=== PATIENT | female | born 1955 | race Caucasian/White ===

== ENCOUNTER 2018-07-25 12:19 | Emergency (ER) | payer OTHER, SELFPAY ==
[2018-07-25 12:30] VITALS: BP 115/54; PULSE 82; RESP 14; TEMP 36.2; O2SAT 98; BMI 43.0
--- NOTE | 2018-07-25 13:00 | ED_ITS ---
HPI - Recheck/Abnormal Lab/Rx <Chloe Maddox PA-C - Last Filed: 07/25/18 18:30> General Chief Complaint: Recheck/Abnormal Lab/Rx Stated Complaint: abnormal lab results for Glucose, sent by [facility] Time Seen by Provider: 07/25/18 12:59 Source: patient Mode of arrival: ambulatory Limitations: no limitations History of Present Illness HPI narrative: this 62-year-old female was sent here today after a phone call from PCP regarding lab work that was done yesterday. She was told that her glucose was more than 400 and needed to come to the ED. She states that she had her labs done shortly after eating a cheeseburger and fries yesterday and is diabetic. She states that she is feeling in her usual state of health today and was in the middle of getting a pedicure when she got called. She states that she has not been feeling that well in the last year. She states that she does not have any increased urinary frequency ( has chronically) and drinks a lot of fluids. She has not been more thirsty. She has had some increased vaginal itching for the last month and was put on nystatin for her PCP. She has not had any recent URI symptoms, cough, diarrhea, or fever. She states that she has had some chest discomfort the occasionally and has talked with her PCP about this, she denies any chest pain or dyspnea now. She states the only other new symptoms she can think of is her right ankle has been a little bit sore just with walking on it for the last couple of days. She denies any calf pain or swelling. She states that this morning she had a slice of pizza, then had fast food but has not eaten for about 3 hr now. She states that she is on 50 units of Lantus once daily but not on any other medications for her diabetes. Her fasting blood sugars are generally in the upper 270s range. She admits that she has not been checking any postprandial blood sugars Related Data Home Medications Medication Instructions Recorded Confirmed aspirin 81 mg PO DAILY 07/25/18 07/25/18 insulin glargine [Lantus Solostar 50 units SUBCUT DAILY 07/25/18 07/25/18 U-100 Insulin] levothyroxine [Synthroid] 50 mcg PO DAILY 07/25/18 07/25/18 lisinopril 10 mg PO DAILY 07/25/18 07/25/18 loratadine 10 mg PO DAILY 07/25/18 07/25/18 nystatin 1 applic TOPICAL DIRECTED 07/25/18 07/25/18 Allergies Allergy/AdvReac Type Severity Reaction Status Date / Time No Known Drug Allergies Allergy Verified 07/25/18 12:36 Review of Systems <Chloe Maddox PA-C - Last Filed: 07/25/18 18:30> Review of Systems All systems reviewed & are unremarkable except as noted in HPI and below Exam <Chloe Maddox PA-C - Last Filed: 07/25/18 18:30> Narrative Exam Narrative: GENERAL APPEARANCE: Patient sitting comfortably, appears well NECK/THYROID: Neck supple LUNGS: Clear to auscultation bilaterally. HEART: Regular rate and rhythm without murmur, normal S1, S2, no S3 or S4. ABDOMEN: Soft, NT, ND EXTREMITIES: No cyanosis or edema. No calf tenderness NEUROLOGIC: Alert and oriented, normal speech, gait and coordination. MUSCULOSKELETAL: right ankle no effusion or tenderness, full range of motion nonweightbearing Initial Vital Signs Initial Vital Signs: Vital Signs Temperature 97.2 F L 07/25/18 12:30 Pulse Rate 82 07/25/18 12:30 Respiratory Rate 14 07/25/18 12:30 Blood Pressure 115/54 L 07/25/18 12:30 Pulse Oximetry 98 07/25/18 12:30 <Flores Musa DO - Last Filed: 07/28/18 08:34> Initial Vital Signs Initial Vital Signs: Vital Signs Temperature 97.2 F L 07/25/18 12:30 Pulse Rate 82 07/25/18 12:30 Respiratory Rate 14 07/25/18 12:30 Blood Pressure 115/54 L 07/25/18 12:30 Pulse Oximetry 98 07/25/18 12:30 Course <KATIE Zhou Last Filed: 07/25/18 18:30> Additional Information: patient was going about her usual activities, did not appear acutely ill. From what she describes her home blood sugars have clearly been similar to what they are today. She does not have any urine ketones, blood sugar is 322 nonfasting. Advised follow-up with PCP in the next day or 2 so that she can get some mealtime insulin or other new medication added to help with postprandial blood sugars, and advised on diet modification. Orders Ordered: ED Orders 07/25/18 13:23 Complete Blood Count AUTO DIFF Stat Comprehensive Metabolic Panel Stat Vital Signs - 8 hr 07/25/18 12:30 07/25/18 14:33 Temperature 97.2 F L Pulse Rate 82 79 Respiratory Rate 14 18 Blood Pressure 115/54 L Blood Pressure [Right Arm] 134/78 Pulse Oximetry 98 98 <Flores Musa DO - Last Filed: 07/28/18 08:34> Orders Ordered: ED Orders 07/25/18 13:23 Complete Blood Count AUTO DIFF Stat Comprehensive Metabolic Panel Stat Vital Signs - 8 hr 07/25/18 12:30 07/25/18 14:33 Temperature 97.2 F L Pulse Rate 82 79 Respiratory Rate 14 18 Blood Pressure 115/54 L Blood Pressure [Right Arm] 134/78 Pulse Oximetry 98 98 MDM - Recheck/Abnormal Lab/Rx <Chloe Maddox PA-C - Last Filed: 07/25/18 18:30> Medical Records Attestation: I reviewed the patient's medical records. Labs from 07/24 glucose 400, no other abnormality on Chem panel, osmolality 284 normal range 265-285 Lab Data Attestation: I reviewed the patient's lab results. Result diagrams: 07/25/18 13:23 07/25/18 13:23 Lab Results 07/25/18 07/25/18 Range/Units 13:23 13:23 WBC 8.8 (4.5-11.0) X10^3/uL RBC 5.09 (4.0-5.2) X10^6/uL Hgb 15.1 (12.0-16.0) g/dL Hct 44.0 (36-46) % MCV 86.4 (80-100) fL MCH 29.7 (26-34) PG MCHC 34.4 (30-36) % RDW 13.4 (11.6-14.8) % Plt Count 291 (150-400) X10^3/uL Neut % (Auto) 56.8 (50-75) % Lymph % (Auto) 35.0 (25-40) % [place] % (Auto) 5.2 (3-14) % Eos % (Auto) 1.6 L (2-4) % Baso % (Auto) 1.4 (0-2) % Neut # (Auto) 5000 (1481-6698) /uL Sodium 137 (137-145) mmol/L Potassium 4.2 (3.4-5.1) mmol/L Chloride 98 (98-107) mmol/L Carbon Dioxide 26 (22-32) mmol/L BUN 16 (7-17) mg/dL Creatinine 0.60 (0.52-1.04) mg/dL Estimated GFR > 60.0 (>60) mL/min BUN/Creatinine Ratio 26.7 H (6-22) Glucose 322 H (80-110) mg/dL Calcium 9.6 (8.4-10.2) mg/dL Total Bilirubin 0.5 (0.2-1.3) mg/dL AST 19 (14-36) IU/L ALT 25 (9-52) IU/L Alkaline Phosphatase 79 (38-126) U/L Total Protein 7.8 (6.3-8.2) g/dL Albumin 4.3 (3.5-5.0) g/dL Globulin 3.5 (1.7-4.1) g/dL Albumin/Globulin Ratio 1.2 (1.0-2.8) Ketones Cancelled Point of Care Testing Glucose POC 275 Urine Dip Bedside Urine Glucose 1000 mg/dl Bedside Urine Bilirubin - Negative Bedside Urine Ketone - Negative Urine Specific [place] 1.015 Bedside Urine Occult Blood - Negative Bedside Urine pH 6.0 Bedside Urine Protein - Negative Bedside Urine Urobilinogen - Negative Bedside Urine Nitrite - Negative Bedside Urine Leukocytes - Negative Esterase <Flores Musa, DO - Last Filed: 07/28/18 08:34> Lab Data Lab Results 07/25/18 07/25/18 Range/Units 13:23 13:23 WBC 8.8 (4.5-11.0) X10^3/uL RBC 5.09 (4.0-5.2) X10^6/uL Hgb 15.1 (12.0-16.0) g/dL Hct 44.0 (36-46) % MCV 86.4 (80-100) fL MCH 29.7 (26-34) PG MCHC 34.4 (30-36) % RDW 13.4 (11.6-14.8) % Plt Count 291 (150-400) X10^3/uL Neut % (Auto) 56.8 (50-75) % Lymph % (Auto) 35.0 (25-40) % [place] % (Auto) 5.2 (3-14) % Eos % (Auto) 1.6 L (2-4) % Baso % (Auto) 1.4 (0-2) % Neut # (Auto) 5000 (3424-6426) /uL Sodium 137 (137-145) mmol/L Potassium 4.2 (3.4-5.1) mmol/L Chloride 98 (98-107) mmol/L Carbon Dioxide 26 (22-32) mmol/L BUN 16 (7-17) mg/dL Creatinine 0.60 (0.52-1.04) mg/dL Estimated GFR > 60.0 (>60) mL/min BUN/Creatinine Ratio 26.7 H (6-22) Glucose 322 H (80-110) mg/dL Calcium 9.6 (8.4-10.2) mg/dL Total Bilirubin 0.5 (0.2-1.3) mg/dL AST 19 (14-36) IU/L ALT 25 (9-52) IU/L Alkaline Phosphatase 79 (38-126) U/L Total Protein 7.8 (6.3-8.2) g/dL Albumin 4.3 (3.5-5.0) g/dL Globulin 3.5 (1.7-4.1) g/dL Albumin/Globulin Ratio 1.2 (1.0-2.8) Ketones Cancelled Point of Care Testing Glucose POC 275 Urine Dip Bedside Urine Glucose 1000 mg/dl Bedside Urine Bilirubin - Negative Bedside Urine Ketone - Negative Urine Specific [place] 1.015 Bedside Urine Occult Blood - Negative Bedside Urine pH 6.0 Bedside Urine Protein - Negative Bedside Urine Urobilinogen - Negative Bedside Urine Nitrite - Negative Bedside Urine Leukocytes - Negative Esterase Discharge Plan Departure Patient Disposition: Home Clinical Impression: Chronic hyperglycemia Discharge Date/Time: 07/25/18 14:43 Interventions: ED Discharge Assessment Last Done: 07/25/18 14:43 Instructions: Type 2 Diabetes, DI for Hyperglycemia -- Adult, What to Eat if You Have Diabetes Activity Restrictions/Additional Instructions: please call your clinic and arrange for follow-up in the next few days. In the interim, please check blood sugar 1 hr after eating your largest 2 meals of the day and take your blood sugars to the clinic to review. from what you have described to me about your home blood sugars and recent lab work, your blood sugars are consistently elevated and today's readings that we see look typical. please talk with your PCP about further treatment for your after meal blood sugars (you may need to add some mealtime insulin or another new medication as you have been talking about). Please work on more healthier meals , avoid fast food, sweets and sugary drinks. Please be sure to talk with your PCP about the chest discomfort that you have had periodically as it may be helpful to refer you for stress testing. We have not done further testing for this since you are not symptomatic now. As we talked about, you should get to the emergency room if you experience chest pain or shortness of breath Prescriptions: No Action aspirin 81 mg tablet,delayed release (DR/EC) 81 mg PO DAILY RF: 0 levothyroxine [Synthroid] 50 mcg tablet 50 mcg PO DAILY RF: 0 nystatin 100,000 unit/gram cream 1 applic Topical DIRECTED RF: 0 lisinopril 10 mg tablet 10 mg PO DAILY RF: 0 insulin glargine [Lantus Solostar U-100 Insulin] 100 unit/mL (3 mL) insulin pen 50 units subcut DAILY RF: 0 loratadine 10 mg tablet 10 mg PO DAILY RF: 0 Referrals: [facility] [Outside] <Flores Musa DO - Last Filed: 07/28/18 08:34> Cosign ED Attending Papiature Attestation: I was immediately available in the department for consultation. Documentation has been reviewed. I agree with assessment and plan.
[2018-07-25 13:31] LABS: Add Manual Diff / Slide Review NO; Basophils Percent Auto 1.4 % (0-2); Eosinophils Percent Auto 1.6 % (2-4); Hemoglobin 15.1 g/dL (12.0-16.0); Mean Corpuscular HGB Conc 34.4 % (30-36); Mean Corpuscular Hemoglobin 29.7 PG (26-34); Mean Corpuscular Volume 86.4 fL (80-100); Monocytes Percent Auto 5.2 % (3-14); Neutrophils Absolute Auto 5000 /uL (3000-5900); Neutrophils Percent Auto 56.8 % (50-75); Platelet Count 291 X10^3/uL (150-400); Red Blood Cell Count 5.09 X10^6/uL (4.0-5.2); Red Cell Distribution Width 13.4 % (11.6-14.8); White Blood Cell Count 8.8 X10^3/uL (4.5-11.0)
[2018-07-25 13:48] LABS: Alanine Aminotransferase 25 IU/L (9-52); Albumin 4.3 g/dL (3.5-5.0); Albumin Globulin Ratio 1.2 (1.0-2.8); Alkaline Phosphatase 79 U/L (38-126); Aspartate Aminotransferase 19 IU/L (14-36); BUN Creatinine Ratio 26.7 (6-22); Bilirubin Total 0.5 mg/dL (0.2-1.3); Blood Urea Nitrogen 16 mg/dL (7-17); Calcium 9.6 mg/dL (8.4-10.2); Carbon Dioxide 26 mmol/L (22-32); Chloride 98 mmol/L (98-107); Estimated Glomerular Filt Rate > 60.0 mL/min (>60); Globulin 3.5 g/dL (1.7-4.1); Glucose 322 mg/dL (80-110); Potassium 4.2 mmol/L (3.4-5.1); Sodium 137 mmol/L (137-145); Total Protein 7.8 g/dL (6.3-8.2)
[2018-07-25 14:33] VITALS: BP 134/78; PULSE 79; RESP 18; O2SAT 98
== END 2018-07-25 14:43 | disposition home or self-care (01) ==
PROVIDERS: Emergency Provider Internal Medicine; PCP Nutritionist
DX: R73.9 Hyperglycemia, unspecified (principal)
CPT/HCPCS: 36415; 80053; 81003; 82962; 85025; 99283